=== PATIENT | male | born 1995 | race American Indian/Alaskan Native ===

== ENCOUNTER 2021-11-30 19:55 | Emergency (ER) | payer SELFPAY ==
[2021-11-30 21:06] LABS: Basophils % (Auto) 0.7 % (0.0-1.8); Eosinophils # (Auto) 0.2 K/mm3 (0.0-0.4); Eosinophils % (Auto) 3.2 % (0.0-4.3); Hematocrit 42.4 % (35.5-45.6); Hemoglobin 13.8 gm/dl (11.8-15.2); Lymphocytes # (Auto) 2.5 K/mm3 (1.2-5.4); Lymphocytes % (Auto) 47.1 % (13.4-35.0); Mean Corpuscular HGB Conc 33 % (32-34); Mean Corpuscular Volume 89 fl (84-94); Monocytes # (Auto) 0.7 K/mm3 (0.0-0.8); Platelet Count 206 K/mm3 (140-440); Red Blood Count 4.74 M/mm3 (3.65-5.03); Red Cell Distribution Width 13.7 % (13.2-15.2)
[2021-11-30 21:17] LABS: BUN/Creatinine Ratio 12; Blood Urea Nitrogen 12 mg/dL (9-20); Calcium 9.5 mg/dL (8.4-10.2); Hemolysis Index 9
--- NOTE | 2021-11-30 21:56 | Emergency Department Report ---
ED Psych HPI - General Chief Complaint: Psych Stated Complaint: MH BREAKDOWN Time Seen by Provider: 11/30/21 21:11 Source: family Mode of arrival: Ambulatory - History of Present Illness Initial Comments: Episodes Aggresive behavior since last Friday. Was missing for several days per mother and discharged from [facility] on . Aggressive behavior continues. Denies SI nor HI. -: Gradual, days(s) Associated Psychiatric Symptoms: racing thoughts, auditory hallucinations History of same: Yes Quality: constant Improves With: none Worsens With: none Treatments Prior to Arrival: none - Related Data Allergies Allergy/AdvReac Type Severity Reaction Status Date / Time No Known Allergies Allergy Unverified 11/30/21 20:28 ED Review of Systems ROS: Stated complaint: MH BREAKDOWN Other details as noted in HPI Constitutional: denies: chills, fever Eyes: denies: eye pain, eye discharge, vision change ENT: denies: ear pain, throat pain Respiratory: denies: cough, shortness of breath, wheezing Cardiovascular: denies: chest pain, palpitations Endocrine: no symptoms reported Gastrointestinal: denies: abdominal pain, nausea, diarrhea Genitourinary: denies: urgency, dysuria Musculoskeletal: denies: back pain, joint swelling, arthralgia Skin: denies: rash, lesions Neurological: denies: headache, weakness, paresthesias Psychiatric: denies: anxiety, depression Hematological/Lymphatic: denies: easy bleeding, easy bruising ED Past Medical Hx - Past Medical History Previous Medical History?: Yes Hx Psychiatric Treatment: Yes (Schizophrenia, Bipolar) - Surgical History Past Surgical History?: No - Social History Smoking Status: Never Smoker Substance Use Type: None ED Physical Exam - General Limitations: No Limitations General appearance: alert, in no apparent distress - Head Head exam: Present: atraumatic, normocephalic - Eye Eye exam: Present: normal appearance - ENT ENT exam: Present: mucous membranes moist - Neck Neck exam: Present: normal inspection - Respiratory Respiratory exam: Present: normal lung sounds bilaterally. Absent: respiratory distress - Cardiovascular Cardiovascular Exam: Present: regular rate, normal rhythm. Absent: systolic murmur, diastolic murmur, rubs, gallop - GI/Abdominal GI/Abdominal exam: Present: soft, normal bowel sounds - Rectal Rectal exam: Present: deferred - Extremities Exam Extremities exam: Present: normal inspection - Back Exam Back exam: Present: normal inspection - Neurological Exam Neurological exam: Present: alert, oriented X3 - Psychiatric Psychiatric exam: Present: other (appears anxois , repsomdig to internal stimuli , keeps saying they r lying ) - Skin Skin exam: Present: warm, dry, intact, normal color. Absent: rash ED Course Vital Signs 11/30/21 12/01/21 12/01/21 20:23 04:42 09:48 Temperature 98.3 F 98.6 F Pulse Rate 62 58 L Respiratory 18 16 18 Rate Blood Pressure 167/89 Blood Pressure 155/86 [Left] O2 Sat by Pulse 100 99 98 Oximetry 12/01/21 21:04 Temperature 97.7 F Pulse Rate 52 L Respiratory 18 Rate Blood Pressure Blood Pressure 137/87 [Left] O2 Sat by Pulse 98 Oximetry ED Medical Decision Making - Lab Data Result diagrams: 11/30/21 20:38 11/30/21 20:38 Critical care attestation.: If time is entered above; I have spent that time in minutes in the direct care of this critically ill patient, excluding procedure time. ED Disposition Clinical Impression: Psychosis, Schizophrenia Disposition: [address] [place] [address] Is pt being admited?: No Does the pt Need Aspirin: No Condition: Stable Referrals: MICHAEL SEGURA MD [Primary Care Provider] - 3-5 Days
[2021-12-01 03:35] LABS: Amphetamine Screen,Urine Negative; Benzodiazepines Screen,Urine Negative; Cocaine Screen,Urine Negative; Methadone Screen,Urine Negative; Opiate Screen,Urine Negative
[2021-12-01 03:49] LABS: Amorphous Crystals,Urine 1+; Bacteria,Urine 1+ /HPF (Negative); Bilirubin,Urine NEG (Negative); Blood,Urine MOD (Negative); Color,Urine Yellow (Yellow); Mucus,Urine 3+ /HPF
[2021-12-01 04:36] LABS: Cannabinoid Screen,Urine PRESUMPTIVE POSITIVE
--- NOTE | 2021-12-01 09:46 | Consultation ---
History of Present Illness - Reason for Consult Consult date: 12/01/21 Reason for consult: psychosis - History of Present Psychiatric Illness The patient was seen today. He is slow to respond and most of the times just stares. He appears preoccupied and having difficulty articulating his thoughts. He is responding to internal stimuli. When I ask the patient was he hearing any voices, he says "yes." He could not further elaborate. He just sat there staring. REVIEW OF SYSTEMS Could not assess MENTAL STATUS EXAMINATION Could not assess Assessment: Acute Psychosis Treatment Plan 1013 Olanzapine 5mg po daily Trazodone 50mg po qhs Prozac 10mg po daily Risks, benefits and alternatives of medications discussed with the patient, questions answered and consent obtained from patient. PSYCHOTHERAPY: Supportive psychotherapy provided MEDICAL: Per primary team DELIRIUM PRECAUTIONS: Please re-orient patient frequently, keep lights on during the day, and minimize benzodiazepines and opiates as these medications could worsen patient's confusion. FILTER MACHINE OPERATOR: per primary DISPOSITION: Recommend acute psychiatric treatment. Will follow. Thank you for the consult. Please contact with any questions and/or concerns. Case discussed with Dr. Smith who agrees with current disposition Medications and Allergies Allergies Allergy/AdvReac Type Severity Reaction Status Date / Time No Known Allergies Allergy Unverified 11/30/21 20:28 Mental Status Exam - Vital signs Last Vital Signs Temp 98.6 F 12/01/21 04:42 Pulse 58 L 12/01/21 04:42 Resp 16 12/01/21 04:42 BP 155/86 12/01/21 04:42 Pulse Ox 99 12/01/21 04:42 Results Result Diagrams: 11/30/21 20:38 11/30/21 20:38 Abnormal lab results 11/30/21 11/30/21 11/30/21 Range/Units 20:38 20:38 20:38 Lymph % (Auto) (13.4-35.0) % [place] % (Auto) (0.0-7.3) % Seg Neutrophils % (40.0-70.0) % Glucose 105 H (75-100) mg/dL Urine WBC (Auto) (0.0-6.0) /HPF Salicylates < 0.3 L (2.8-20.0) mg/dL Acetaminophen 5.0 L (10.0-30.0) ug/mL 11/30/21 12/01/21 Range/Units 20:38 03:08 Lymph % (Auto) 47.1 H (13.4-35.0) % [place] % (Auto) 13.0 H (0.0-7.3) % Seg Neutrophils % 36.0 L (40.0-70.0) % Glucose (75-100) mg/dL Urine WBC (Auto) 108.0 H (0.0-6.0) /HPF Salicylates (2.8-20.0) mg/dL Acetaminophen (10.0-30.0) ug/mL All other labs normal.
[2021-12-01] MEDS ORDERED: FLUoxetine 10 MG TAB PO SCH (10:00)
--- NOTE | 2021-12-01 12:26 | Event Note ---
Date: 12/01/21 26-year-old male here with psychosis/auditory hallucinations. He was seen by my colleague and was medically cleared for psychiatric evaluation placement. He was found to be Covid positive. He also had a urinalysis which showed evidence of infection. Has been started on Keflex 500 mg twice daily x5 days. Vital signs reviewed and are stable. There were no acute events overnight. Currently awaiting inpatient psychiatric facility placement.
[2021-12-01] MEDS: cephALEXin 500 MG CAP PO SCH ×2 (14:19→22:18)
[2021-12-01] MEDS: traZODone 50 MG TAB PO SCH (22:18)
--- NOTE | 2021-12-02 09:20 | Emergency Department Report ---
Blank Doc - Documentation Documentation: Patient had presented with acute psychosis. There were no events throughout the night. Labs have been reviewed. Patient does have coronavirus but is asymptomatic. We are awaiting psychiatric placement.
--- NOTE | 2021-12-02 09:47 | Progress Note ---
Subjective - Reason for Consult Consult date: 12/02/21 Reason for consult: psychosis - Chief Complaint Chief complaint: The patient was seen today. He is more talkative today. He is still slow to respond. He is responding to internal stimuli. He says he's not feeling good. The patient says "it's the depression. It's chronic and it's a whole nother person" He says voices are "making him believe that something is going to make him happy." When asking the patient was he suicidal, the patient could not put in words how he felt. He says "I'm not relaxed." REVIEW OF SYSTEMS Could not assess MENTAL STATUS EXAMINATION Could not assess Assessment: Acute Psychosis Treatment Plan 1013 Increase Olanzapine 10mg po daily Trazodone 50mg po qhs Increase Prozac 20mg po daily Start Vistaril 50mg po BID Risks, benefits and alternatives of medications discussed with the patient, questions answered and consent obtained from patient. PSYCHOTHERAPY: Supportive psychotherapy provided MEDICAL: Per primary team DELIRIUM PRECAUTIONS: Please re-orient patient frequently, keep lights on during the day, and minimize benzodiazepines and opiates as these medications could worsen patient's confusion. CENTRAL OFFICE MAINTAINER: per primary DISPOSITION: Recommend acute psychiatric treatment. Will follow. Thank you for the consult. Please contact with any questions and/or concerns. Case discussed with Dr. Smith who agrees with current disposition Mental Status Exam - Vital signs Last Vital Signs Temp 97.7 F 12/01/21 21:04 Pulse 52 L 12/01/21 21:04 Resp 18 12/01/21 21:04 BP 137/87 12/01/21 21:04 Pulse Ox 98 12/02/21 05:38
[2021-12-02] MEDS ORDERED: FLUoxetine 20 MG CAP PO SCH (10:00)
[2021-12-02] MEDS: cephALEXin 500 MG CAP PO SCH ×2 (10:42→22:50)
[2021-12-02] MEDS: traZODone 50 MG TAB PO SCH (22:50)
--- NOTE | 2021-12-03 08:37 | Progress Note ---
Subjective - Reason for Consult Consult date: 12/03/21 Reason for consult: Psychosis - Chief Complaint Chief complaint: The patient was seen today. He is still responding to internal stimuli. He's slow to respond. His thoughts are somewhat disorganized. When asking the patient was he still depressed, he says "I'm not sure if it's still depression. I feel a lot of fear." He says "my heart and soul are afraid." The patient says he has a bunch of thoughts that are "trying to find happiness." He doesn't answer when I ask him was he suicidal. He just stares for a minute as if he's looking for the right words. He denies homicidal thoughts. REVIEW OF SYSTEMS Constitutional: Negative for weight loss ENT: Negative for stridor Respiratory: Negative for cough or hemoptysis All other systems reviewed and are negative MENTAL STATUS EXAMINATION General Appearance and Behavior: Age appropriate, good hygiene, wearing appropriate clothes. calm, cooperative Cooperation: Cooperative Psychomotor Behavior: Psychomotor normal Mood: depressed Affect and affective range: restricted Thought Process: illogical, circumstantial, slow to respond Thought Content: hallucinations, responding to internal stimuli Speech: Normal tone and pace Suicidal Ideation: Passive Homicidal Ideation: Denies Hallucinations: Auditory Delusions: Yes Impulse Control: Limited Insight and Judgment: Limited insight and fair judgment Memory: Limited Attention: distracted Orientation: a/o x 3 Assessment: Acute Psychosis Treatment Plan 1013 Increase Olanzapine 15mg po daily Trazodone 50mg po qhs Increase Prozac 40mg po daily Vistaril 50mg po BID Risks, benefits and alternatives of medications discussed with the patient, questions answered and consent obtained from patient. PSYCHOTHERAPY: Supportive psychotherapy provided MEDICAL: Per primary team DELIRIUM PRECAUTIONS: Please re-orient patient frequently, keep lights on during the day, and minimize benzodiazepines and opiates as these medications could worsen patient's confusion. OPTIONS ADVISOR: per primary DISPOSITION: Recommend acute psychiatric treatment. Will follow. Thank you for the consult. Please contact with any questions and/or concerns. Case discussed with Dr. Smith who agrees with current disposition Mental Status Exam - Vital signs Last Vital Signs Temp 98.7 F 12/02/21 20:09 Pulse 79 12/02/21 20:09 Resp 18 12/02/21 20:09 BP 144/62 12/02/21 20:09 Pulse Ox 99 12/02/21 20:09
[2021-12-03] MEDS: cephALEXin 500 MG CAP PO SCH ×2 (10:35→23:54)
[2021-12-03] MEDS: FLUoxetine 20 MG CAP PO SCH (10:35)
--- NOTE | 2021-12-03 11:33 | Emergency Department Report ---
Blank Doc - Documentation Documentation: Patient is still acutely psychotic this morning. We are awaiting psychiatric admission.
[2021-12-03] MEDS: traZODone 50 MG TAB PO SCH (23:59)
--- NOTE | 2021-12-04 11:35 | Progress Note ---
Subjective - Reason for Consult Consult date: 12/04/21 Reason for consult: phsychosis - Chief Complaint Chief complaint: The patient was seen today. The patient was seen today. He is communicating better and articulating his thoughts better. He says he feels a lot better and can notice a difference when people are around. He says "I don't feel paranoid or hear the voices." The patient says "I'm much better." He denies SI/HI. He says he's been sleeping well. The patient says "the meds make me sleep good at night, but I'm still sleepy a little during the day." REVIEW OF SYSTEMS Constitutional: Negative for weight loss ENT: Negative for stridor Respiratory: Negative for cough or hemoptysis All other systems reviewed and are negative MENTAL STATUS EXAMINATION General Appearance and Behavior: Age appropriate, good hygiene, wearing appropriate clothes. calm, cooperative Cooperation: Cooperative Psychomotor Behavior: Psychomotor normal Mood: much better Affect and affective range: congruent with stated mood Thought Process: circumstantial Thought Content: Denies Speech: Normal tone and pace Suicidal Ideation: Denies Homicidal Ideation: Denies Hallucinations: Denies Delusions: None elicited Impulse Control: Limited Insight and Judgment: Limited insight and fair judgment Memory: Limited Attention: distracted Orientation: a/o x 3 Assessment: Acute Psychosis Treatment Plan d/c 1013 Olanzapine 15mg po daily Trazodone 50mg po qhs Prozac 40mg po daily Vistaril 50mg po BID Risks, benefits and alternatives of medications discussed with the patient, questions answered and consent obtained from patient. PSYCHOTHERAPY: Supportive psychotherapy provided MEDICAL: Per primary team DELIRIUM PRECAUTIONS: Please re-orient patient frequently, keep lights on during the day, and minimize benzodiazepines and opiates as these medications could worsen patient's confusion. GENERATOR REBUILDER: per primary DISPOSITION: Do not recommend acute psychiatric treatment. Validation Scientist to give outpatient resources and safety plan Will sign off. Thanks Thank you for the consult. Please contact with any questions and/or concerns. Case discussed with Dr. Smith who agrees with current disposition Mental Status Exam - Vital signs Last Vital Signs Temp 98.4 F 12/04/21 03:12 Pulse 63 12/04/21 03:12 Resp 16 12/04/21 03:12 BP 129/62 12/04/21 03:12 Pulse Ox 98 12/04/21 03:12
--- NOTE | 2021-12-04 11:45 | Emergency Department Report ---
Blank Doc - Documentation Documentation: 26-year-old male with schizophrenia bipolar presents with acute psychosis. In the ED for several days receiving p.o. medications. As per mental health heating and refrigeration inspector note patient is improved with recommendation to discontinue 1013, p.o. meds, and follow-up. Patient also Covid positive and has a UTI receiving Keflex during ED stay for
[2021-12-04] MEDS: cephALEXin 500 MG CAP PO SCH (12:51)
[2021-12-04] MEDS: FLUoxetine 20 MG CAP PO SCH (12:52)
[2021-12-04 14:37] VITALS: BP 119/63
== END 2021-12-04 15:00 | disposition home or self-care (01) ==
LOC: ED 19:55
DX: U07.1 COVID-19 (principal); F20.9 Schizophrenia, unspecified; F31.9 Bipolar disorder, unspecified; Z98.890 Other specified postprocedural states; Z79.899 Other long term (current) drug therapy
CPT/HCPCS: 36415; 80048; 80307; 81001; 85025; 99284; Q0177; U0003; 80320; G0480

== ENCOUNTER 2021-12-14 23:11 | Emergency (ER) | payer SELFPAY ==
[2021-12-15 00:54] VITALS: BP 138/83
[2021-12-15] MEDS ORDERED: FLUoxetine 20 MG CAP PO ONE (01:18)
[2021-12-15] MEDS ORDERED: hydrOXYzine PAMOATE 25 MG CAP PO ONE (01:18)
[2021-12-15] MEDS ORDERED: traZODone 50 MG TAB PO ONE (01:18)
[2021-12-15] MEDS ORDERED: OLANzapine ZYDIS 5 MG TAB PO ONE (01:18)
[2021-12-15 01:42] LABS: Basophils % (Auto) 0.6 % (0.0-1.8); Eosinophils # (Auto) 0.3 K/mm3 (0.0-0.4); Eosinophils % (Auto) 5.4 % (0.0-4.3); Hematocrit 42.2 % (35.5-45.6); Lymphocytes # (Auto) 2.8 K/mm3 (1.2-5.4); Lymphocytes % (Auto) 47.1 % (13.4-35.0); Mean Corpuscular HGB Conc 33 % (32-34); Mean Corpuscular Volume 89 fl (84-94); Monocytes # (Auto) 0.5 K/mm3 (0.0-0.8); Monocytes % (Auto) 8.9 % (0.0-7.3); Platelet Count 227 K/mm3 (140-440); Red Blood Count 4.72 M/mm3 (3.65-5.03); Red Cell Distribution Width 13.6 % (13.2-15.2)
--- NOTE | 2021-12-15 01:51 | Emergency Department Report ---
ED Psych HPI - General Chief Complaint: Psych Stated Complaint: MH Time Seen by Provider: 12/15/21 01:10 Source: patient Mode of arrival: Ambulatory - History of Present Illness Initial Comments: Patient presents because of auditory hallucinations and concerned that he is going to "have an outburst." He had recently been seen here for psychiatric issues. He had auditory hallucinations with suicidal thoughts. He had been treated with medication and was improved. He was transferred from here to a different psychiatric facility. They changed his medications and dosages. He is now decompensated. He feels that the voices are starting again. He wanted to get back on the appropriate medications before he actually got to the point he was suicidal like the last time. He is not homicidal. He has not done anything to harm himself. - Related Data Previous Rx's Medication Instructions Recorded Last Taken Type FLUoxetine HCL [PROzac] 40 mg PO QDAY #30 cap 12/04/21 Unknown Rx OLANZapine [Zyprexa Zydis] 15 mg PO DAILY #30 12/04/21 Unknown Rx cephALEXin [Keflex] 500 mg PO BID #12 capsule 12/04/21 Unknown Rx hydrOXYzine PAMOATE [Vistaril] 50 mg PO BID PRN #60 capsule 12/04/21 Unknown Rx traZODone [Desyrel] 50 mg PO QHS #30 tab 12/04/21 Unknown Rx Allergies Allergy/AdvReac Type Severity Reaction Status Date / Time No Known Allergies Allergy Unverified 11/30/21 20:28 ED Review of Systems ROS: Stated complaint: MH Other details as noted in HPI Comment: All other systems reviewed and negative Constitutional: denies: fever Eyes: denies: vision change ENT: denies: throat pain Respiratory: denies: cough Cardiovascular: denies: chest pain Endocrine: denies: unexplained weight loss Gastrointestinal: denies: abdominal pain Genitourinary: denies: dysuria Musculoskeletal: denies: back pain Skin: denies: rash Neurological: denies: headache Psychiatric: as per HPI Hematological/Lymphatic: denies: easy bruising ED Past Medical Hx - Past Medical History Previous Medical History?: Yes Hx Psychiatric Treatment: Yes (Schizophrenia, Bipolar) - Surgical History Past Surgical History?: No - Family History Family history: other (Psychiatric disease) - Social History Smoking Status: Never Smoker Substance Use Type: None - Medications Home Medications: Home Medications Medication Instructions Recorded Confirmed Last Taken Type FLUoxetine HCL [PROzac] 40 mg PO QDAY #30 cap 12/04/21 Unknown Rx OLANZapine [Zyprexa Zydis] 15 mg PO DAILY #30 12/04/21 Unknown Rx cephALEXin [Keflex] 500 mg PO BID #12 capsule 12/04/21 Unknown Rx hydrOXYzine PAMOATE [Vistaril] 50 mg PO BID PRN #60 capsule 12/04/21 Unknown Rx traZODone [Desyrel] 50 mg PO QHS #30 tab 12/04/21 Unknown Rx ED Physical Exam - General Limitations: No Limitations, Other (Pulse ox noted and normal) General appearance: alert, in no apparent distress - Head Head exam: Present: atraumatic, normocephalic - Eye Eye exam: Present: normal appearance, EOMI. Absent: scleral icterus - ENT ENT exam: Present: normal orophraynx, normal external ear exam - Neck Neck exam: Present: normal inspection. Absent: meningismus - Respiratory Respiratory exam: Present: normal lung sounds bilaterally. Absent: respiratory distress - Cardiovascular Cardiovascular Exam: Present: regular rate, normal rhythm - GI/Abdominal GI/Abdominal exam: Present: soft - Extremities Exam Extremities exam: Present: normal capillary refill - Back Exam Back exam: Absent: CVA tenderness (R), CVA tenderness (L) - Neurological Exam Neurological exam: Present: alert, oriented X3, CN II-XII intact, normal gait. Absent: motor sensory deficit - Psychiatric Psychiatric exam: Present: normal affect, normal mood - Skin Skin exam: Present: warm, dry ED Course Vital Signs 12/15/21 00:50 Temperature 98.2 F Pulse Rate 63 Respiratory 18 Rate Blood Pressure 138/83 O2 Sat by Pulse 98 Oximetry - Reevaluation(s) Reevaluation #1: 12/15/21 01:51 Labs have been ordered. Old records noted. Patient stated that his previous dosing regiment works for him. I restarted his medication. Reevaluation #2: 12/15/21 03:21 Labs have been reviewed. Patient is currently sleeping. When he awakes, we will determine next steps. He is here voluntarily and not actively suicidal. I do not think that he would meet requirements for a 1013. Reevaluation #3: 12/15/21 06:21 Patient is still suicidal this morning. He is placed on a 1013. Psychiatric evaluation has been requested. ED Medical Decision Making - Lab Data Result diagrams: 12/15/21 01:19 12/15/21 01:19 - Medical Decision Making Patient presents with auditory hallucinations and suicidal ideation. He related this to a recent change in his medication. Despite getting put back on his regular medication, he still feels as though he wants to harm himself. He was placed on a mental health hold. He has been medically cleared. Psychiatric services can see the patient this morning and arrange disposition. Critical Care Time: No Critical care attestation.: If time is entered above; I have spent that time in minutes in the direct care of this critically ill patient, excluding procedure time. ED Disposition Clinical Impression: Auditory hallucinations, Suicidal ideation Disposition: 30 STILL A PATIENT Is pt being admited?: No Condition: Stable
[2021-12-15 02:03] LABS: BUN/Creatinine Ratio 12; Blood Urea Nitrogen 11 mg/dL (9-20); Hemolysis Index 21
[2021-12-15 02:18] LABS: Bilirubin,Urine NEG (Negative); Blood,Urine NEG (Negative); Color,Urine Yellow (Yellow); Protein,Urine <15 mg/dL mg/dL (Negative); Urobilinogen,Urine < 2.0 mg/dL (<2.0); WBC,Urine < 1.0 /HPF (0.0-6.0)
[2021-12-15 02:26] LABS: Amphetamine Screen,Urine PRESUMPTIVE NEGATIVE; Benzodiazepines Screen,Urine PRESUMPTIVE NEGATIVE; Cannabinoid Screen,Urine PRESUMPTIVE POSITIVE; Cocaine Screen,Urine PRESUMPTIVE NEGATIVE; Methadone Screen,Urine PRESUMPTIVE NEGATIVE; Opiate Screen,Urine PRESUMPTIVE NEGATIVE
--- NOTE | 2021-12-15 10:53 | Progress Note ---
Subjective - Reason for Consult Consult date: 12/15/21 Reason for consult: hallucinations - Chief Complaint Chief complaint: The patient was seen today. He was previously seen here a couple of weeks ago. He says after getting to the new psych facility they changed his medications and they did not work for him like the ones prescribed here. He says he started back hearing voices. He denies hallucinations at time of evaluation, but says he feels anxious. He says "I came here to get things situated before they got as bad as before." The patient says "I need to go back on the medications you gave me before." He says he never filled the scripts after they changed his meds and needs new ones. He denies suicidal at present. He says "I was at first, that's why I came back in." REVIEW OF SYSTEMS Constitutional: Negative for weight loss ENT: Negative for stridor Respiratory: Negative for cough or hemoptysis All other systems reviewed and are negative MENTAL STATUS EXAMINATION General Appearance and Behavior: Age appropriate, good hygiene, wearing appropriate clothes. calm, cooperative Cooperation: Cooperative Psychomotor Behavior: Psychomotor normal Mood: anxious Affect and affective range: congruent with stated mood Thought Process: circumstantial Thought Content: Denies Speech: Normal tone and pace Suicidal Ideation: Denies at present, but was Homicidal Ideation: Denies Hallucinations: Denies Delusions: None elicited Impulse Control: Limited Insight and Judgment: Limited insight and fair judgment Memory: Limited Attention: distracted Orientation: a/o x 3 Assessment: Acute Psychosis Treatment Plan d/c 1013 Olanzapine 15mg po daily Trazodone 50mg po qhs Prozac 40mg po daily Vistaril 50mg po BID Risks, benefits and alternatives of medications discussed with the patient, questions answered and consent obtained from patient. PSYCHOTHERAPY: Supportive psychotherapy provided MEDICAL: Per primary team DELIRIUM PRECAUTIONS: Please re-orient patient frequently, keep lights on during the day, and minimize benzodiazepines and opiates as these medications could worsen patient's confusion. THERAPIST PHYSICAL: per primary DISPOSITION: Do not recommend acute psychiatric treatment. Fruit Harvester Machine Operator to give outpatient resources and safety plan Will sign off. Thanks Thank you for the consult. Please contact with any questions and/or concerns. Case discussed with Dr. Smith who agrees with current disposition Mental Status Exam - Vital signs Last Vital Signs Temp 98.2 F 12/15/21 00:50 Pulse 63 12/15/21 00:50 Resp 18 12/15/21 00:50 BP 138/83 12/15/21 00:50 Pulse Ox 98 12/15/21 00:50
--- NOTE | 2021-12-15 11:23 | Event Note ---
Date: 12/15/21 vss , no distress no SI , medically cleared assessed by psych , d/c 1013 , ready for dishcarge with follow up
== END 2021-12-15 11:54 | disposition home or self-care (01) ==
LOC: ED 23:11
DX: R45.851 Suicidal ideations (principal); F20.9 Schizophrenia, unspecified; Z20.822 Contact with and (suspected) exposure to COVID-19; F31.9 Bipolar disorder, unspecified; Z79.899 Other long term (current) drug therapy
CPT/HCPCS: 36415; 80048; 80307; 81001; 85025; 99283; U0003; 80320; G0480

== ENCOUNTER 2021-12-24 06:42 | Emergency (ER) | payer SELFPAY ==
[2021-12-24 10:48] LABS: Basophils # (Auto) 0.1 K/mm3 (0.0-0.1); Eosinophils # (Auto) 0.3 K/mm3 (0.0-0.4); Eosinophils % (Auto) 4.2 % (0.0-4.3); Hematocrit 44.2 % (35.5-45.6); Hemoglobin 14.6 gm/dl (11.8-15.2); Lymphocytes # (Auto) 2.1 K/mm3 (1.2-5.4); Mean Corpuscular HGB Conc 33 % (32-34); Mean Corpuscular Volume 88 fl (84-94); Monocytes # (Auto) 0.5 K/mm3 (0.0-0.8); Monocytes % (Auto) 7.8 % (0.0-7.3); Platelet Count 235 K/mm3 (140-440); Red Cell Distribution Width 13.4 % (13.2-15.2)
[2021-12-24 11:12] LABS: Alanine Aminotransferase 66 units/L (7-56); Albumin 4.9 g/dL (3.9-5); BUN/Creatinine Ratio 12; Blood Urea Nitrogen 11 mg/dL (9-20); Hemolysis Index 7
--- NOTE | 2021-12-24 11:12 | Emergency Department Report ---
HPI - General Chief Complaint: Psych Time Seen by Provider: 12/24/21 10:35 - [facility] HPI: Reassessment 1 The patient is a 26-year-old male present with a chief complaint of suicidal ideation. The patient initially stated "I feel like something is trying to attack months.." Patient is a suicidal ideation for the past 4 days. Patient admits to auditory hallucinations with voices telling him "you should be suicidal" and to "do something suicidal." Patient denies any attempts at harming himself or having an active plan. ED Past Medical Hx - Past Medical History Previous Medical History?: Yes Hx Hypertension: Yes Hx Psychiatric Treatment: Yes (Schizophrenia, Bipolar) - Surgical History Past Surgical History?: No Additional Surgical History: Left knee surgery - Family History Family history: no significant - Social History Smoking Status: Never Smoker Substance Use Type: None (Denies illicit drug use) - Medications Home Medications: Home Medications Medication Instructions Recorded Confirmed Last Taken Type FLUoxetine HCL [PROzac] 40 mg PO QDAY #30 cap 12/15/21 12/25/21 Unknown Rx OLANZapine [Zyprexa Zydis] 15 mg PO DAILY #30 12/15/21 12/25/21 Unknown Rx hydrOXYzine PAMOATE [Vistaril] 50 mg PO BID PRN #60 capsule 12/15/21 12/25/21 Unknown Rx traZODone [Desyrel] 50 mg PO QHS #30 tab 12/15/21 12/25/21 Unknown Rx ARIPiprazole (NF) [Abilify 400 mg IM QMONTH 12/25/21 12/25/21 12/18/21 10:00 History Maintena (Nf)] ED Review of Systems ROS: Stated complaint: SI Other details as noted in HPI Constitutional: no symptoms reported Eyes: denies: eye pain ENT: denies: throat pain Respiratory: no symptoms reported Cardiovascular: denies: chest pain Endocrine: no symptoms reported Gastrointestinal: denies: abdominal pain Genitourinary: denies: dysuria Musculoskeletal: denies: back pain Neurological: denies: headache Psychiatric: auditory hallucinations, suicidal thoughts Physical Exam - Physical Exam Vital Signs: Vital Signs 12/24/21 10:01 Temperature 98.6 F Pulse Rate 68 Respiratory 16 Rate Blood Pressure 137/87 [Left] O2 Sat by Pulse 100 Oximetry Physical Exam: GENERAL: The patient is well-developed well-nourished male sitting in chair not appearing to be in acute distress HEENT: Normocephalic. Atraumatic. Extraocular motions are intact. Patient has moist mucous membranes. NECK: Supple. Trachea midline CHEST/LUNGS: Clear to auscultation. There is no respiratory distress noted. HEART/CARDIOVASCULAR: Regular. There is no tachycardia. There is no gallop rub or murmur. ABDOMEN: Abdomen is soft, nontender. Patient has normal bowel sounds. There is no abdominal distention. SKIN: There is no rash. There is no edema. There is no diaphoresis. NEURO: The patient is awake, alert, and oriented. The patient is cooperative. The patient has no focal neurologic deficits. The patient has normal speech. GCS 15 MUSCULOSKELETAL: There is no evidence of acute injury. ED Course Vital Signs 12/24/21 10:01 Temperature 98.6 F Pulse Rate 68 Respiratory 16 Rate Blood Pressure 137/87 [Left] O2 Sat by Pulse 100 Oximetry ED Medical Decision Making - Lab Data Result diagrams: 12/24/21 10:13 12/25/21 15:00 - Differential Diagnosis Suicidal ideation Critical care attestation.: If time is entered above; I have spent that time in minutes in the direct care of this critically ill patient, excluding procedure time. ED Disposition Clinical Impression: Suicidal ideation Disposition: 02 [facility] Is pt being admited?: No Does the pt Need Aspirin: No Condition: Stable Referrals: PRIMARY CARE [Primary Care Provider] - 3-5 Days
[2021-12-24 17:04] LABS: Bilirubin,Urine NEG (Negative); Blood,Urine NEG (Negative); Color,Urine Yellow (Yellow); Mucus,Urine FEW /HPF; Protein,Urine <15 mg/dL mg/dL (Negative); Urobilinogen,Urine < 2.0 mg/dL (<2.0); WBC,Urine < 1.0 /HPF (0.0-6.0)
[2021-12-24 17:07] LABS: Amphetamine Screen,Urine Negative; Benzodiazepines Screen,Urine Negative; Cannabinoid Screen,Urine Negative; Cocaine Screen,Urine Negative; Methadone Screen,Urine Negative; Opiate Screen,Urine Negative
[2021-12-24] MEDS ORDERED: LORazepam 1 MG TAB PO ONE (22:58)
--- NOTE | 2021-12-25 10:51 | Consultation ---
History of Present Illness - Reason for Consult Consult date: 12/25/21 Reason for consult: Suicidal - History of Present Psychiatric Illness ED Note: The patient is a 26-year-old male present with a chief complaint of suicidal ideation. The patient initially stated "I feel like something is trying to attack months.." Patient is a suicidal ideation for the past 4 days. Patient admits to auditory hallucinations with voices telling him "you should be suicidal" and to "do something suicidal." Patient denies any attempts at harming himself or having an active plan. The patient is a 26 year old male with history of schizophrenia and bipolar who presents to the Ed with suicidal ideation. In my encounter with the patient, he presents with disorganized thoughts. He states that "he took too much meds. like, 10 pills of Prozac, I did not mean to take too much." He denies any current suicidal/homicidal ideation. PAST PSYCHIATRIC HISTORY Diagnoses: Schizophrenia and bipolar Suicide attempts or Self-harm behavior: Denies Prior psychiatric hospitalizations: Yes Substance Abuse history: Denies Previous psychiatric medications tried:Unable to recall Outpatient treatment: Denies PAST MEDICAL HISTORY: Family Psychiatric History: None reported or documented SOCIAL HISTORY Marital Status: Single Living Arrangements:Lives with mom Employment Status: Unemployed Access to guns/weapons: None reported Education: 12th grade History of Abuse: None reported Legal History: Unknown REVIEW OF SYSTEMS Constitutional: Negative for weight loss ENT: Negative for stridor Respiratory: Negative for cough or hemoptysis All other systems reviewed and are negative MENTAL STATUS EXAMINATION General Appearance and Behavior: Age appropriate, good hygiene, wearing appropriate clothes. calm, cooperative Cooperation: Cooperative Psychomotor Behavior: Psychomotor normal Mood: confused Affect and affective range: congruent with stated mood Thought Process: circumstantial Thought Content: Disorganized Speech: Normal tone and pace Suicidal Ideation: Denies at present, but was Homicidal Ideation: Denies Hallucinations: Denies Delusions: Paranoid Impulse Control: Limited Insight and Judgment: Limited insight and fair judgment Memory: Limited Attention: distracted Orientation: a/o x 3 Assessment: Acute Psychosis Treatment Plan 1013 Olanzapine 15mg po daily Trazodone 50mg po qhs Vistaril 50mg po BID Risks, benefits and alternatives of medications discussed with the patient, questions answered and consent obtained from patient. PSYCHOTHERAPY: Supportive psychotherapy provided MEDICAL: Per primary team DELIRIUM PRECAUTIONS: Please re-orient patient frequently, keep lights on during the day, and minimize benzodiazepines and opiates as these medications could worsen patient's confusion. MANAGER OF PHARMACY: per primary DISPOSITION: Recommend acute psychiatric treatment. Will follow. Thank you for the consult. Please contact with any questions and/or concerns. Case discussed with Dr. Smith who agrees with current disposition Medications and Allergies Allergies Allergy/AdvReac Type Severity Reaction Status Date / Time No Known Allergies Allergy Unverified 11/30/21 20:28 Home Medications Medication Instructions Recorded Confirmed Last Taken Type FLUoxetine HCL [PROzac] 40 mg PO QDAY #30 cap 12/15/21 12/25/21 Unknown Rx OLANZapine [Zyprexa Zydis] 15 mg PO DAILY #30 12/15/21 12/25/21 Unknown Rx hydrOXYzine PAMOATE [Vistaril] 50 mg PO BID PRN #60 capsule 12/15/21 12/25/21 Unknown Rx traZODone [Desyrel] 50 mg PO QHS #30 tab 12/15/21 12/25/21 Unknown Rx ARIPiprazole (NF) [Abilify 400 mg IM QMONTH 12/25/21 12/25/21 12/18/21 10:00 History Maintena (Nf)] Mental Status Exam - Vital signs Last Vital Signs Temp 98.4 F 12/25/21 01:23 Pulse 77 12/25/21 01:23 Resp 17 12/25/21 01:23 BP 135/79 12/25/21 01:23 Pulse Ox 96 12/25/21 07:47 Results Result Diagrams: 12/24/21 10:13 12/24/21 10:13 Abnormal lab results 12/24/21 12/24/21 12/24/21 Range/Units 10:13 10:13 10:13 Sodium 134 L (137-145) mmol/L Chloride 97.6 L (98-107) mmol/L ALT 66 H (7-56) units/L Salicylates < 0.3 L (2.8-20.0) mg/dL Acetaminophen 5.0 L (10.0-30.0) ug/mL All other labs normal.
[2021-12-25] MEDS ORDERED: OLANZAPINE 15 MG PO SCH (11:00)
--- NOTE | 2021-12-25 12:57 | Event Note ---
Date: 12/25/21 S: No events reported overnight O: Vital Signs - 8 hr 12/25/21 12/25/21 07:47 10:58 Temperature 98.6 F Pulse Rate 82 Respiratory 18 Rate Blood Pressure 139/63 [Left] O2 Sat by Pulse 96 98 Oximetry A: Suicidal ideation P: 1013/awaiting inpatient psych
[2021-12-25] MEDS ORDERED: traZODone 50 MG TAB PO SCH (22:00)
--- NOTE | 2021-12-26 13:03 | Emergency Department Report ---
Blank Doc - Documentation Documentation: 26-year-old male currently on 1012. Accepted to [facility]. Awaiting maria l odonnell
[2021-12-26 17:00] VITALS: BP 133/67
== END 2021-12-26 21:22 | disposition short-term general hospital (02) ==
LOC: ED 06:42
DX: R45.851 Suicidal ideations (principal); I10 Essential (primary) hypertension; F20.9 Schizophrenia, unspecified; F31.9 Bipolar disorder, unspecified; Z98.890 Other specified postprocedural states; Z20.822 Contact with and (suspected) exposure to COVID-19
CPT/HCPCS: 36415; 80053; 80307; 81001; 84295; 85025; 99285; U0003; 80320; G0480